=== PATIENT | male | born 1970 | race African-American/Black ===

== ENCOUNTER 2024-12-21 19:20 | Emergency (ER) | payer OTHER ==
[~2024-12-21] VITALS: Ht 188 cm; Wt 100.0 kg
[2024-12-21 19:26] VITALS: TEMP 36.6; O2SAT 100
[2024-12-21 20:26] LABS: EOSINOPHILS % 0.2 % (0.0-5.0); HEMATOCRIT. 52.2 % (42.0-52.0); HEMOGLOBIN. 17.7 g/dL (14.0-18.0); LYMPHOCYTES % 25.4 % (20.0-50.0); MEAN CORPUSCULAR HEMOGLOBIN 30.3 pg (28.0-32.0); MEAN CORPUSCULAR HGB CONC 33.9 g/dL (31.0-37.0); MEAN CORPUSCULAR VOLUME 89.3 fL (80.0-94.0); MEAN PLATELET VOLUME 7.9 fl (7.4-10.4); MONOCYTES % 6.9 % (2.0-8.0); NEUTROPHILS % 66.5 % (40.0-76.0); PLATELET 397 x1000/uL (130-400); RED BLOOD CELL COUNT 5.85 mill/uL (4.7-6.1); RED CELL DISTRIBUTION WIDTH 13.1 % (11.6-14.6); WHITE BLOOD COUNT 15.9 x1000/uL (4.5-11.0)
[2024-12-21 20:35] LABS: INR 1.3; PARTIAL THROMBOPLASTIN TIME 31.9 sec (23.4-31.0); PROTHROMBIN TIME 13.4 sec (9.6-11.0)
[2024-12-21 20:38] LABS: CHLORIDE 94 mEq/L (98-107); POTASSIUM 3.6 mEq/L (3.5-5.1); SODIUM 134 mEq/L (136-145)
[2024-12-21 20:39] LABS: CALCIUM 10.9 mg/dL (8.7-10.4); CARBON DIOXIDE 24 mEq/L (21-32)
[2024-12-21 20:44] LABS: CREATININE 1.2 mg/dL (0.6-1.3); GLUCOSE 183 mg/dL (70-105); UREA NITROGEN BLOOD 22 mg/dL (9-23)
[2024-12-21 20:45] LABS: TROPONIN I HIGH SENSITIVITY 12 ng/L (3.0-53)
[2024-12-21 20:46] LABS: ETHANOL BLOOD < 10 mg/dL (<10)
[2024-12-21 20:49] LABS: LACTIC ACID 2.3 mmol/L (0.4-2.0)
[2024-12-21] MEDS: LABETALOL 5MG/ML 4ML INJ IV ONE (20:58)
[2024-12-21 21:10] VITALS: BP 170/95; PULSE 100; RESP 12; O2SAT 99
[2024-12-21 21:38] LABS: CLARITY URINE CLEAR (CLEAR); COLOR URINE YELLOW (YELLOW); GLUCOSE URINE 3+ (NEGATIVE); KETONES URINE 1+ (NEGATIVE); LEUKOCYTE ESTERASE URINE NEGATIVE (NEGATIVE); NITRITE URINE NEGATIVE (NEGATIVE); OCCULT BLOOD URINE NEGATIVE (NEGATIVE); PROTEIN URINE 2+ (NEGATIVE); SPECIFIC GRAVITY URINE 1.021 (1.005-1.030); UROBILINOGEN URINE 0.2 E.U./dL (0.2-1.0)
[2024-12-21 21:48] LABS: BACTERIA URINE TRACE; RBC URINE 0-2 /hpf (0-2); SQUAMOUS EPITHELIAL CELL URINE 1+ /lpf (RARE/1+); WBC URINE 0-2 /hpf (0-2)
[2024-12-21 21:52] LABS: *AMPHETAMINES SCREEN URINE NEGATIVE (NEGATIVE)
[2024-12-21 21:53] LABS: *BARBITURATES SCREEN URINE NEGATIVE (NEGATIVE); *BENZODIAZEPINES SCREEN URINE NEGATIVE (NEGATIVE); *COCAINE SCREEN URINE NEGATIVE (NEGATIVE); METHADONE URINE SCREEN NEGATIVE (NEGATIVE); OPIATES URINE SCREEN NEGATIVE (NEGATIVE)
[2024-12-21 21:54] LABS: CANNABINOID URINE SCREEN NEGATIVE (NEGATIVE); ECSTASY MDMA SCREEN URINE NEGATIVE (NEGATIVE); PHENCYCLIDINE URINE SCREEN NEGATIVE (NEGATIVE)
[2024-12-21] MEDS ORDERED: VANCOMYCIN 1G PREMIX 200 ML IV ONE (22:00)
[2024-12-21] MEDS ORDERED: SODIUM CHLORIDE 0.9% (SEPSIS BOLUS) IV ONE (22:00)
[2024-12-21] MEDS ORDERED: PIPERACILLIN/TAZO 3.375G/50ML 50 ML IV ONE (22:00)
[2024-12-21] MEDS ORDERED: LABETALOL 5MG/ML 4ML INJ IV ONE (23:15)
== END 2024-12-21 23:10 | disposition left against medical advice (07) ==
LOC: ER 19:20
DX: R41.82 Altered mental status, unspecified (principal); I62.9 Nontraumatic intracranial hemorrhage, unspecified; R65.20 Severe sepsis without septic shock; A41.9 Sepsis, unspecified organism; E11.9 Type 2 diabetes mellitus without complications; I10 Essential (primary) hypertension; Z86.73 Personal history of transient ischemic attack (TIA), and cerebral infarction without residual deficits; Z79.899 Other long term (current) drug therapy
CPT/HCPCS: 80305; 80048; 81003; 80320; 82962; 83880; 83605; 85025; 85610; 85730; 86850; 86900; 86901; 87040; 84484; 36415; 84145; 71045; 70450; 93005; 96374; 99291; J3490; J7030; Z7610 ×3; A4606; G0480